=== PATIENT | male | born 1970 | race African-American/Black ===

== ENCOUNTER 2017-11-08 11:42 | Emergency (ER) | payer OTHER ==
[~2017-11-08] VITALS: Ht 190.5 cm; Wt 89.8 kg
[2017-11-08 11:47] VITALS: Ht 190.5 cm; Wt 89.8 kg
[2017-11-08 16:08] VITALS: BP 131/78
== END 2017-11-08 16:08 | disposition home or self-care (01) ==
LOC: ED 11:42
DX: M75.102 Unspecified rotator cuff tear or rupture of left shoulder, not specified as traumatic (principal); M75.101 Unspecified rotator cuff tear or rupture of right shoulder, not specified as traumatic; I10 Essential (primary) hypertension

== ENCOUNTER 2018-10-05 23:12 | Emergency (ER) | payer OTHER ==
[~2018-10-05] VITALS: Ht 188 cm; Wt 87.1 kg
[2018-10-05 23:39] VITALS: Ht 188 cm; Wt 87.1 kg
[2018-10-06 01:54] VITALS: BP 150/98
== END 2018-10-06 01:54 | disposition home or self-care (01) ==
LOC: ED 23:12
DX: S01.411A Laceration without foreign body of right cheek and temporomandibular area, initial encounter (principal); S01.81XA Laceration without foreign body of other part of head, initial encounter; I10 Essential (primary) hypertension; F17.210 Nicotine dependence, cigarettes, uncomplicated; Y04.0XXA Assault by unarmed brawl or fight, initial encounter; Y93.89 Activity, other specified; Y92.89 Other specified places as the place of occurrence of the external cause; Y99.8 Other external cause status
CPT/HCPCS: J2001

== ENCOUNTER 2020-09-12 14:37 | Emergency (ER) | payer OTHER ==
[~2020-09-12] VITALS: Ht 188 cm; Wt 90.3 kg
[2020-09-12 14:49] VITALS: Ht 188 cm; Wt 90.3 kg
[2020-09-12 15:46] VITALS: BP 148/79
== END 2020-09-12 15:46 | disposition home or self-care (01) ==
LOC: ED 14:37
DX: R12 Heartburn (principal); I10 Essential (primary) hypertension; Z76.0 Encounter for issue of repeat prescription